=== PATIENT | female | born 1945 | race Caucasian/White ===

== ENCOUNTER 2018-11-16 17:57 | Inpatient (IN) ==
--- NOTE | 2018-11-16 18:51 | XRay Report ---
XR chest 1V portable CLINICAL HISTORY: Chest Pain dyspnea COMPARISON STUDY: No previous studies for comparison. FINDINGS: The bones soft tissues and hemidiaphragms are normal. The cardiomediastinal silhouette is n ormal. The lungs are clear. The pulmonary vasculature is normal. IMPRESSION: Negative chest. The above report was generated using voice recognition software. It may contain grammatical, syntax or spelling errors. Electronically signed by: Azam Serra M.D. 11/16/2018 6:50 PM
[2018-11-16 18:54] LABS: Basophils # (auto) 0.04 K/uL (0-0.2); Basophils % (auto) 0.7 %; Eosinophils # (auto) 0.05 K/uL (0-0.5); Eosinophils % (auto) 0.8 %; Hematocrit (blood only) 34.5 % (37-47); Hemoglobin 11.5 g/dL (12.0-16.0); Lymphocytes # (auto) 1.29 K/uL (1.2-3.4); Lymphocytes % (auto) 21.2 %; Mean Corpuscular Hgb Conc 33.3 g/dL (32-36); Mean Corpuscular Volume 95.3 fL (80-100); Mean Platelet Volume 10.1 fL (7.4-10.4); Monocytes # (auto) 0.47 K/uL (0.11-0.59); Monocytes % (auto) 7.7 %; Neutrophils # (auto) 4.24 K/uL (1.4-6.5); Neutrophils % (auto) 69.6 %; Platelet Count 196 K/uL (130-400); RDW Standard Deviation 45.2 fL (36.4-46.3); Red Blood Count 3.62 M/uL (4.2-5.4); White Blood Count 6.09 K/uL (4.8-10.8)
[2018-11-16 19:01] LABS: Albumin Level 3.4 gm/dl (3.4-5.0); BUN Creatinine Ratio 25.7 (10-20); Calcium 8.3 mg/dl (8.5-10.1); Creatinine Clr Calc Pharmacy 95.1 ml/min; Est GFR (African American) 109.4; Est GFR (Non-African American) 94.4; Magnesium 1.9 mg/dl (1.8-2.4); Potassium 3.5 mmol/L (3.5-5.1)
[2018-11-16 19:08] LABS: Bilirubin,Total 0.2 mg/dl (0.2-1); Globulin 3.3 gm/dl (2.5-4.0); Total Protein 6.7 gm/dl (6.4-8.2); Troponin I 0.137 ng/ml (0-0.045)
[2018-11-16] MEDS ORDERED: HEPARIN SOD 5,000 UNIT/0.5 ML VIAL ONE (19:30)
[2018-11-16] MEDS ORDERED: HEPARIN 25000 UNIT/500 ML D5W IV ONE (19:31)
[2018-11-16] MEDS ORDERED: HEPARIN IV BOLUS 5,000 UNITS in SYRINGE 0 ML IV ONE (19:45)
[2018-11-16] MEDS ORDERED: ASPIRIN CHEW 324 MG PO STA (19:58)
[2018-11-16 20:03] LABS: Prothrombin Time 10.3 Seconds (9.0-12.0)
[2018-11-16] MEDS ORDERED: ASPIRIN CHEW 324 MG ONE (20:17)
[2018-11-16] MEDS: Heparin Adult STANDARD Wt-Based Dextrose 5% 25,000 units/500 mL IV SCH ×2 (20:45→21:37)
[2018-11-16] MEDS ORDERED: ONDANSETRON INJ 2 MG/ML 2 ML VIAL IV PRN (20:50)
[2018-11-16] MEDS ORDERED: NITROGLYCERIN SL 0.4 MG/TAB TAB SL PRN (20:50)
[2018-11-16] MEDS ORDERED: ACETAMINOPHEN 325 MG TAB PO PRN (20:50)
[2018-11-16] MEDS: SODIUM CHLORIDE 0.9% 1000ML 1,000 ML IV SCH (21:35)
[2018-11-16] MEDS: NITROGLYCERIN 2% OINTMENT 30GM TUBE EXT SCH (21:36)
--- NOTE | 2018-11-16 22:56 | History and Physical Report ---
DATE OF ADMISSION: 11/16/2018 CHIEF COMPLAINT: Chest pain. HISTORY OF PRESENT ILLNESS: This is a 72-year-old female with past medical history significant for prediabetes, not on any medications, presents with chest pain. The patient noticed chest pain last after heavy work, mid level of the chest, radiating to the back of the neck, pressure like feeling, at that time she also felt like short of breath and some difficulty swallowing and with rest the pain subsided in about 20 minutes and also yesterday when she went for dancing with her , after some time, she felt has some mild chest discomfort but not as bad as the first episode, but it did not happen when she had brisk walk other day. She went to family doctor today, since there had some abnormal EKG changes was planned for stress test tomorrow, but was advised to go to the ER if the chest pain recurs. Then again, she noticed some chest discomfort today in the afternoon and it was not as bad as before but it prompted her to come to the ER. Currently, resting comfortable and hemodynamically stable. Denies any shortness of breath. Currently, no nausea, no vomiting, no sweating, no dizziness, no headache, no blurred vision, no earache, no runny nose, no sore throat, no difficulty swallowing. No cough, no fever, no chills. Sleeping okay. Appetite is not that great since last few months. She says she has had a lot of stress since last few months and her appetite is down. Sleep is okay. Denies abdominal pain. Normal bowel and bladder movements. No burning micturition, no hematuria, no melena or hematochezia. No swelling in the legs. No rash, no easy bruising or easy bleeding. ALLERGIES: CODEINE AND PENCILLIN ,MERCURY. PAST MEDICAL HISTORY: As mentioned above. PAST SURGICAL HISTORY: Breast biopsy; colonoscopy; conization of cervix; appendectomy; removal of neck wrinkles; removal of skin wrinkles of cheek and chin wrinkles; blepharoplasty, lower eyelid; lipectomy of the head and neck. MEDICATIONS: The patient is on ibuprofen as needed. FAMILY HISTORY: Significant for mother had cancer. Maternal grandmother has diabetes, hypertension, breast cancer. SOCIAL HISTORY: , lives with . No smoking, alcohol socially. No drug use. REVIEW OF SYMPTOMS: As per HPI. Rest of review of systems negative. PHYSICAL EXAMINATION: GENERAL: The patient is of moderate built, not in acute distress. VITAL SIGNS: Temperature 36.7, pulse 64, respiratory rate 18, blood pressure 118/67, oxygen 97% room air. HEENT: No pallor, no icterus. Pupils equal, round and reactive to light. NECK: No JVD, no neck masses, no carotid bruit. CARDIOVASCULAR: S1, S2 heard, regular rate and rhythm, no murmur, no gallop. RESPIRATORY SYSTEM: Normal AP diameter. No accessory muscle use. No wheezing, no crackles. ABDOMEN: Soft, bowel sounds present. Nontender. No distention. CENTRAL NERVOUS SYSTEM: Cranial nerves II-XII are grossly intact. Nonfocal. EXTREMITIES: No edema, no erythema. LABS: WBC 6, hemoglobin 11.5, hematocrit 34.5, platelets 196. Sodium 137, potassium 3.5, chloride 103, bicarbonate 30, BUN 14, creatinine 0.5, serum glucose 98, calcium 8.3, magnesium 1.9, total bilirubin 0.2, AST 26, ALT 41, alkaline phosphatase 91. Troponin I 0.13. Lipase 178. Chest x-ray, negative chest. EKG shows sinus rhythm at the rate of 68, T-wave inversions in lateral leads. ASSESSMENT AND PLAN: This is a 72-year-old female who presents with chest pain and abnormal EKG had some elevated troponin. 1. Non-ST elevated myocardial infarction. Chest pain with exertion. EKG changes with T-wave inversions of lateral leads and mild elevation of troponin 0.137. We will start her on IV heparin. We will place her on nitro paste, aspirin. Follow serial cardiac enzymes, echocardiogram. Monitor in tele floor. Consult cardiology for possible cardiac catheterization. We will also follow the lipid profile. 2. Prediabetes. Follow hemoglobin A1c levels. Currently n.p.o. 3. Deep venous thrombosis prophylaxis, IV heparin. DISPOSITION: Close monitoring in tele floor. Level I full code. MTDD
--- NOTE | 2018-11-16 23:09 | Emergency Department Note ---
Entered by Tevin Castaneda acting as a scribe for Jourdan Caraballo MD History of Present Illness General Chief complaint: Chest Pain Stated complaint: CHEST PAIN Time Seen by Provider: 11/16/18 17:58 Source: patient History of Present Illness Onset (ago): minute(s) (prior to arrival) Location: chest Pain Consistency: + now resolved Quality: + other (tightness) Relieved By: + other ("waiting") Exacerbated By: not by other (exertion) Associated symptoms: no loss of appetite and no nausea/vomiting Treatments prior to arrival: aspirin The patient is a 72 year old white female who presents to the Emergency Room with complaints of currently resolved chest tightness occurring prior to arrival. She states that she first developed pain in her right shoulder that radiated to her neck and chest. She notes some difficulty swallowing at that time but no shortness of breath. She states that her pain was not worsened with exertion, and it seemed to improve with waiting. The patient reports that she has an outpatient stress test scheduled tomorrow, and she was told by her PCP to come to the ER if she had any chest pain. She notes that she currently has no active chest pain. The patient also reports an episode of chest pressure/tigh tness, shortness of breath, weakness, and dizziness five days ago after unloading a cart that was improved with rest. The patient denies nausea, vomiting, changes in bowel movements or urination, loss of appetite, or use of blood thinners. She also denies a history of smoking, heart/lung problems, s urgeries, or family history of MO or stroke prior to age 65. She notes that she occasionally drinks alcohol. She states that she was given aspirin prior to arrival. Home Medications Home Medications Medication Instructions Recorded Confirmed Type cyanocobalamin (vitamin B-12) 1 ml PO DAILY 11/16/18 11/16/18 History [Vitamin B-12] ibuprofen 600 mg PO DIRECTED PRN 11/16/18 11/16/18 History Allergies Allergy/AdvReac Type Severity Reaction Status Date / Time codeine Allergy Unknown Rash Verified 11/16/18 20:20 mercury (elemental) Allergy Unknown Itchiness/R Verified 11/16/18 20:20 sofy Penicillins Allergy Unknown Rash Verified 11/16/18 20:20 Past Med/Surg History Medical History Anxiety Social History Preferred Language: [place] Communication Ability: Effective Clinical Nursing Coordinator Required: No Beliefs That Will Affect Care: None Current Living Situation: Spouse Other Information That Helps Us Care for You: No Feels Safe at Home: Yes Safety Concerns: Feels Safe At This Time Smoking Status: Never smoker Hx Alcohol Use: Yes Hx Substance Use: No Review of Systems See HPI for pertinent positives & negatives. and A total of 10 systems reviewed and were otherwise negative Physical Exam Vital Signs Vital Signs - 24 hr 11/16/18 18:09 11/16/18 18:31 11/16/18 19:01 Temperature 36.7 C Temperature Source Oral Sepsis Recent Fever Within 48 Hours No Sepsis Action Taken by Nursing No Action Required Pulse Rate 66 67 64 Pulse Rate [Apical] Pulse Rate from SpO2 Sensor 67 62 Respiratory Rate 14 20 18 Respiratory Effort / Characteristics Non-Labored Spontaneous Respiratory Depth Normal Respiratory Pattern Regular Blood Pressure 155/80 H 135/88 118/67 Blood Pressure [Left Arm] Blood Pressure Mean 105 103 84 Blood Pressure Mean [Left Arm] Pulse Oximetry 100 100 97 Oxygen Delivery Method Room Air 11/16/18 20:52 11/16/18 21:57 11/16/18 22:23 Temperature 36.4 C L Temperature Source Oral Sepsis Recent Fever Within 48 Hours Sepsis Action Taken by Nursing Pulse Rate 83 64 Pulse Rate [Apical] 60 Pulse Rate from SpO2 Sensor Respiratory Rate 20 18 Respiratory Effort / Characteristics Non-Labored Respiratory Depth Normal Respiratory Pattern Regular Blood Pressure 131/88 Blood Pressure [Left Arm] 141/76 H Blood Pressure Mean Blood Pressure Mean [Left Arm] 97 Pulse Oximetry 97 98 Oxygen Delivery Method Room Air Room Air GENERAL: Well appearing, well nourished, NAD, non-toxic. EYE EXAM: Normal conjunctiva. PERRL, no anisocoria and EOM's grossly intact w/o pain. OROPHARYNX: No exudate, posterior pharynx is clear, no tonsillar/uvular deviation or swelling. NECK: Supple, no nuchal rigidity, no adenopathy, non-tender. No signs of meningismus. LUNGS: Clear to auscultation bilaterally. Normal chest wall mechanics. HEART: NSR, no MRG. ABDOMEN: Abdomen soft, non-tender, normo-active bowel sounds, no masses, no rebound or guarding. BACK: No CVA TTP. SKIN: No rashes and no bruising. UPPER EXTREMITIES: Upper extremities are grossly normal. LOWER EXTREMITIES: No pitting edema. No calf pain. Negative Baltazar's b/l. NEURO EXAM: Cranial nerves II-XII grossly intact, normal speech, 5/5 strength in b/l upper and lower extremities, moves all 4 extremities without issue on command. Course 1807: Past medical records reviewed. The patient was evaluated in room C6, and a complete history and physical examination were performed. 1915: I consulted Dr. Skip Swain Hospitalist. The patient will be reevaluated for hospitalization. 1923: I updated the patient on results. She reports that she still does not have active chest pain. Consultations Consultation #1: I consulted Dr. Skip Swain Hospitalist. The patient will be reevaluated for hospitalization. Time: 19:16 Administered Medications Heparin Sodium/Dextrose (Heparin Sodium/Dextrose) 25,000 units in 500 mls @ 23 mls/hr IV .[id number] [facility]; Protocol Stop: 12/16/18 20:59 Last Admin: 11/16/18 21:37 Dose: Not Given Documented by: [id number] Sodium Chloride (Nss 1000ml) 1,000 mls @ 75 mls/hr IV .[id number] [facility] Stop: 12/16/18 20:49 Last Admin: 11/16/18 21:35 Dose: 75 mls/hr Documented by: [id number] Nitroglycerin (Nitro-Bid 2%) 0.5 inch EXT Q6H [facility] Stop: 12/16/18 20:59 Last Admin: 11/16/18 21:36 Dose: 0.5 inch Documented by: [id number] Discontinued Medications Aspirin (Aspirin) Confirm Administered Dose 324 mg .ROUTE .STK-MED ONE Stop: 11/16/18 20:18 Last Admin: 11/16/18 20:30 Dose: 324 mg Documented by: [id number] Heparin Sodium (Porcine) (Heparin Sodium (Porcine)) Confirm Administered Dose 10,000 units .ROUTE .STK-MED ONE Stop: 11/16/18 19:31 Last Admin: 11/16/18 19:48 Dose: 5,000 units Documented by: [id number] Cosigned by: [id number] Heparin Sodium/Dextrose () 1 ea IV NOW STA; Protocol Stop: 11/16/18 19:18 Last Admin: 11/16/18 19:49 Dose: Not Given Documented by: [id number] Heparin Sodium/Dextrose (Heparin Sodium/Dextrose) Confirm Administered Dose 25,000 units IV .STK-MED ONE Stop: 11/16/18 19:32 Last Admin: 11/16/18 19:49 Dose: 25,000 units Documented by: [id number] Cosigned by: [id number] Medical Decision Making Medical Records Attestation: I reviewed the patient's medical records. Home Medications Current Medication List: was personally reviewed by wy Laboratory Data Attestation: I reviewed the patient's lab results. Result diagrams: 11/16/18 18:25 11/16/18 18:25 Lab Results 11/16/18 11/16/18 11/16/18 Range/Units 18:25 18:25 18:25 WBC 6.09 (4.8-10.8) K/uL RBC 3.62 L (4.2-5.4) M/uL Hgb 11.5 L (12.0-16.0) g/dL Hct 34.5 L (37-47) % MCV 95.3 (80-100) fL MCH 31.8 (25-34) pg MCHC 33.3 (32-36) g/dL RDW Std Deviation 45.2 (36.4-46.3) fL RDW Coeff of Mj 13.0 (11.5-14.5) % Plt Count 196 (130-400) K/uL MPV 10.1 (7.4-10.4) fL Immature Gran % (Auto) 0.0 % Neut % (Auto) 69.6 % Lymph % (Auto) 21.2 % [place] % (Auto) 7.7 % Eos % (Auto) 0.8 % Baso % (Auto) 0.7 % Immature Gran # (Auto) 0.00 (0.00-0.02) K/uL Neut # (Auto) 4.24 (1.4-6.5) K/uL Lymph # (Auto) 1.29 (1.2-3.4) K/uL [place] # (Auto) 0.47 (0.11-0.59) K/uL Eos # (Auto) 0.05 (0-0.5) K/uL Baso # (Auto) 0.04 (0-0.2) K/uL PT 10.3 (9.0-12.0) Seconds INR 1.0 (0.9-1.1) Sodium 137 (136-145) mmol/L Potassium 3.5 (3.5-5.1) mmol/L Chloride 103 (98-107) mmol/L Carbon Dioxide 30 (21-32) mmol/L Anion Gap 4.0 (3-11) BUN 14 (7-18) mg/dl Creatinine 0.55 L (0.6-1.2) mg/dl Est Cr Clr Drug Dosing 95.1 ml/min Est GFR ( Amer) 109.4 Est GFR (Non-Af Amer) 94.4 BUN/Creatinine Ratio 25.7 H (10-20) Glucose 98 (70-99) mg/dl Calcium 8.3 L (8.5-10.1) mg/dl Magnesium 1.9 (1.8-2.4) mg/dl Total Bilirubin 0.2 (0.2-1) mg/dl AST 26 (15-37) U/L ALT 41 (12-78) U/L Alkaline Phosphatase 91 (45-117) U/L Troponin I 0.137 H* (0-0.045) ng/ml Total Protein 6.7 (6.4-8.2) gm/dl Albumin 3.4 (3.4-5.0) gm/dl Globulin 3.3 (2.5-4.0) gm/dl Albumin/Globulin Ratio 1.0 (0.9-2) Lipase 178 (73-393) U/L Imaging Data Radiologist's Impression: Radiology results as stated below per my review and the radiologist's interpretation: XR chest 1V portable CLINICAL HISTORY: Chest Pain dyspnea COMPARISON STUDY: No previous studies for comparison. FINDINGS: The bones soft tissues and hemidiaphragms are normal. The cardiome diastinal silhouette is normal. The lungs are clear. The pulmonary vasculature is normal. IMPRESSION: Negative chest. The above report was generated using voice recognition software. It may contain grammatical, syntax or spelling errors. Electronically signed by: Azam Serra M.D. 11/16/2018 6:50 PM ECG Data Attestation: I personally reviewed and interpreted this ECG as follows: Indication: chest pain Rate (beats per minute): 68 Rhythm: sinus rhythm Findings: + other (short NV; normal QRS duration; normal axis) and + T-wave inversion (lateral and high lateral) Comparison ECG Date: from (December 2013) Change: the following changes noted (changes are new) Blood Pressure Blood Pressure Findings: Normal blood pressure Blood Pressure Disposition: did not require urgent referral MDM Narrative Prior records/ancillary studies reviewed. Triage nursing notes reviewed. The patient is a 72 year old white female who presents to the Emergency Room with complaints of currently resolved chest tightness occurring prior to arri alex. Differential diagnosis: Etiologies such as cardiac ischemia, aortic dissection, pulmonary embolism, pneumonia, pneumothorax, musculoskeletal, infections, pericarditis, myocarditis, esophageal rupture, gastrointestinal, as well as others were entertained. Patient was seen and evaluated the bedside. The patient did give a description of the vague right-sided chest pain. Patient does not describe it is exertional with no diaphoresis nausea or vomiting. Patient denies any prior history of hypertension or diabetes. Patient denies any early family history of stroke or MO in parents or siblings under the age of 65. Patient is a non-smoker. No prior history of DVT or PE. Patient does not complain of any shortness of breath. The patient does relate to a chest pain episode last that sounded more exertional in nature. The patient did have an EKG completed during an outpatient visit which showed T wave inversions in the patient is pending a stress test tomorrow. Patient's troponin is somewhat elevated. The patient already did receive a full dose aspirin in route. Given that the patient does not have a STEMI and no active chest pain I do not believe she requires a cardiac catheterization at this time. I did discuss with the patient that if she has any recurrence of chest pain she is let us know and that may change her disposition. Patient did not have any further chest pain while in the emergency department. Heparin drip was initiated. I did speak the on-call hospitalist who agreed to further evaluate treat the patient. Patient was admitted to the medicine service. Impression & Plan Non-ST elevation MO (NSTEMI) Critical Care Time I have personally spent 40 minutes of critical care time in the direct management of this patient. This includes bedside care, interpretation of diagnostic studies, and testing, discussion with consultants, patient, and family members, and other required patient management activities. This 40 minutes is in excess of all separately billable procedures. Critical Care Time: Yes Total Critical Care Time: 40 Discharge Plan Visit Data *Final* Discharge Date/Time: 11/16/18 20:52 Chief Complaint: Chest Pain Stated Complaint: CHEST PAIN ED Provider: Jourdan Caraballo Discharge Problem: Non-ST elevation MO (NSTEMI) Patient Disposition: Admitted As Inpatient Discharge Instructions Interventions: ED Discharge Assessment Last Done: 11/16/18 20:52 The scribe's documentation has been prepared under my direction and personally reviewed by me in its entirety. I confirm that the note above accurately reflects all work, treatment, procedures, and medical decision making performed by me.
[2018-11-17 02:42] LABS: Partial Thromboplastin Ratio 3.2
[2018-11-17 02:44] LABS: Partial Thromboplastin Time 86.7 Seconds (21.0-31.0)
[2018-11-17] MEDS: NITROGLYCERIN 2% OINTMENT 30GM TUBE EXT SCH ×3 (02:53→14:45)
[2018-11-17 05:52] LABS: Basophils # (auto) 0.04 K/uL (0-0.2); Basophils % (auto) 0.9 %; Eosinophils # (auto) 0.11 K/uL (0-0.5); Eosinophils % (auto) 2.6 %; Hematocrit (blood only) 33.9 % (37-47); Hemoglobin 11.2 g/dL (12.0-16.0); Lymphocytes # (auto) 1.31 K/uL (1.2-3.4); Mean Corpuscular Volume 94.2 fL (80-100); Mean Platelet Volume 10.2 fL (7.4-10.4); Monocytes # (auto) 0.31 K/uL (0.11-0.59); Monocytes % (auto) 7.3 %; Neutrophils # (auto) 2.45 K/uL (1.4-6.5); Neutrophils % (auto) 58.2 %; Platelet Count 170 K/uL (130-400); RDW Standard Deviation 45.2 fL (36.4-46.3); White Blood Count 4.22 K/uL (4.8-10.8)
[2018-11-17 06:21] LABS: BUN Creatinine Ratio 21.3 (10-20); Calcium 8.1 mg/dl (8.5-10.1); Creatinine Clr Calc Pharmacy 91.4 ml/min; Est GFR (Non-African American) 94.9; Magnesium 2.1 mg/dl (1.8-2.4)
[2018-11-17 06:26] LABS: Chol HDL Ratio 2; Cholesterol 148 mg/dl (0-200); HDL Cholesterol 78 mg/dl; LDL Cholesterol Calculated 62 mg/dl; Triglycerides 40 mg/dl (0-150); VLDL Cholesterol 8 mg/dl
[2018-11-17 06:35] LABS: Troponin I 0.123 ng/ml (0-0.045)
[2018-11-17 06:45] LABS: Estimated Average Glucose 120 mg/dl; Hemoglobin A1C 5.8 % (4.5-5.6)
[2018-11-17] MEDS ORDERED: ASPIRIN 81 MG CHEW PO STA (08:59)
[2018-11-17] MEDS ORDERED: ASPIRIN 81 MG ECTAB PO SCH (09:00)
[2018-11-17] MEDS ORDERED: ATORVASTATIN 40 MG TAB PO SCH (09:00)
--- NOTE | 2018-11-17 09:17 | Cardiology Consultation ---
Date of Consultation November 17, 2018 Assessment & Plan (1) Non-ST elevation [place] (NSTEMI): The patient presents with progressive waxing and waning exertional chest tightness and shortness of breath of a week's duration that is consistent with angina. Her EKG is abnormal with lateral T wave inversions, and troponin is abnormal with mild elevation of 0.137 on presentation, 0.135, and 0.123 ng/ml with most recent measurement having been performed this morning at 5:30 AM. At present, she is comfortable and hemodynamically stable and receiving in fraction heparin infusion. Echocardiogram is abnormal with a moderate sized wall motion abnormality encompassing the inferior, posterior, and apical ricks with preserved LVEF. Recommend proceeding with definitive coronary angiography. Risks were discussed the patient she is agreeable. She received 324 mg of aspirin last evening, and 81 mg of aspirin so far today. I have ordered a one-time dose of 243 mg of chewable aspirin now prior to cardiac catheterization. We will continue her normal saline at 75 mL an hour which had been started on admission as well as unfractionated heparin on-call to the cardiac catheterization lab. Although the patient's cholesterol is low with a total cholesterol of 148, LDL cholesterol 62, and afebrile HDL cholesterol 70 mg/dL, given her event, recommend statin therapy for the purpose of plaque stabilization and therefore atorvastatin 40 mg daily will be administered. Patient is n.p.o. for the procedure. Further recommendations will be forthcoming when she is assessed by Dr. Bonilla for planned cardiac catheterization. History of Present Illness Attending Physician: Rob Doherty MD History of Present Illness Natalie Benjamin is a 72-year-old female seen in cardiology consultation per the request of Dr. Valdivia for cardiac management of non-ST segment elevation myocardial infarction. The patient's primary care provider is Dr. Manisha Perez at [facility]. The patient describes herself as being healthy. She exercises routinely and takes no chronic medications. Her recent symptoms date back to about a week ago when last , 11/11/18 she had been loading items into her car from a fashion show and experienced symptoms of shortness of breath, tightness in her left breast, pressure sensation in her chest, shoulders, and neck. She rested in her car and things felt better. That evening, she felt mild recurrence of similar symptoms while climbing stairs, but once again this improved with rest. 2 days later on Thursday night she went dancing and had recurrence of shortness of breath and chest pressure. Her symptoms once again improved but did wax and wane to a mild degree in the interim. She had a routine scheduled visit with her primary care provider yesterday. After discussion of the symptoms, an EKG was performed which was abnormal. Additional cardiac testing was recommended with stress test, and the patient was counseled that if she should have recurrent symptoms she should seek emergency treatment. Shortly after her appointment yesterday however she had recurrence of the chest discomfort, prompting her to present to the emergency department by ambulance at approximately 6 PM last evening. At present, the patient is comfortable. She is receiving unfractionated heparin infusion. And she has no anginal symptoms. Telemetry reveals stable sinus rhythm. Family History: Mother at age 47 due to with the patient describes as a "rare cancer of the hip and lungs Father at age 90 after complications from a fall The patient has siblings with no heart disease Social History: She is a non-smoker. She produces women's clothing. She is and lives with her and 18-year-old adopted son Allergies Allergy/AdvReac Type Severity Reaction Status Date / Time codeine Allergy Unknown Rash Verified 11/16/18 20:20 mercury (elemental) Allergy Unknown Itchiness/R Verified 11/16/18 20:20 sofy Penicillins Allergy Unknown Rash Verified 11/16/18 20:20 Home Medications Home Medications Medication Instructions Recorded Confirmed Type cyanocobalamin (vitamin B-12) 1 ml PO DAILY 11/16/18 11/16/18 History [Vitamin B-12] ibuprofen 600 mg PO DIRECTED PRN 11/16/18 11/16/18 History Patient History Medical History Anxiety Social History Preferred Language: Kyrgyz Communication Ability: Effective Head Athletic Trainer/Strength Coach Required: No Beliefs That Will Affect Care: None Current Living Situation: Spouse Other Information That Helps Us Care for You: No Feels Safe at Home: Yes Safety Concerns: Feels Safe At This Time Smoking Status: Never smoker Hx Alcohol Use: Yes Hx Substance Use: No Review of Systems 10 point review of systems was reviewed and is negative with the exception of that above. The patient does note recent travel. [place] 08, and flew back on October 19. She notes no leg pain. Physical Exam Vital Signs (Past 24 Hours): Last Vital Signs Temp 36.9 C 11/17/18 08:20 Pulse 58 L 11/17/18 08:20 Resp 16 11/17/18 08:20 BP 105/53 L 11/17/18 08:20 Pulse Ox 95 11/17/18 08:20 Constitutional: WD/WN, vitals as above Neck: trachea midline, no thyromegaly Respiratory: normal respiratory effort, lungs clear to auscultation Cardiovascular: RRR, no murmur, no edema Vessels: no JVD Extremities: no edema Gastrointestinal (Abdomen): normal bowel sounds, soft, nontender, no hepatosplenomegaly Skin: no rashes, warm and dry Neurologic: moves all extremities and awake; no focal motor deficits Results & Data Laboratory Results Cardiac Enzymes 11/16/18 11/16/18 11/17/18 Range/Units 18:25 23:07 05:30 AST 26 (15-37) U/L Troponin I 0.137 H* 0.135 H* 0.123 H* (0-0.045) ng/ml Coagulation 11/16/18 11/17/18 Range/Units 18:25 02:01 PT 10.3 (9.0-12.0) Seconds APTT 86.7 H* (21.0-31.0) Seconds Lipids 11/17/18 Range/Units 05:30 Triglycerides 40 (0-150) mg/dl Cholesterol 148 (0-200) mg/dl HDL Cholesterol 78 mg/dl Cholesterol/HDL Ratio 2 CBC 11/16/18 11/17/18 Range/Units 18:25 05:30 WBC 6.09 4.22 L (4.8-10.8) K/uL RBC 3.62 L 3.60 L (4.2-5.4) M/uL Hgb 11.5 L 11.2 L (12.0-16.0) g/dL Hct 34.5 L 33.9 L (37-47) % Plt Count 196 170 (130-400) K/uL Neut # (Auto) 4.24 2.45 (1.4-6.5) K/uL Lymph # (Auto) 1.29 1.31 (1.2-3.4) K/uL Peach # (Auto) 0.47 0.31 (0.11-0.59) K/uL Eos # (Auto) 0.05 0.11 (0-0.5) K/uL Baso # (Auto) 0.04 0.04 (0-0.2) K/uL Comprehensive Metabolic Panel 11/16/18 11/17/18 Range/Units 18:25 05:30 Sodium 137 140 (136-145) mmol/L Potassium 3.5 4.0 (3.5-5.1) mmol/L Chloride 103 107 (98-107) mmol/L Carbon Dioxide 30 29 (21-32) mmol/L BUN 14 11 (7-18) mg/dl Creatinine 0.55 L 0.54 L (0.6-1.2) mg/dl Glucose 98 96 (70-99) mg/dl Calcium 8.3 L 8.1 L (8.5-10.1) mg/dl AST 26 (15-37) U/L ALT 41 (12-78) U/L Alkaline Phosphatase 91 (45-117) U/L Total Protein 6.7 (6.4-8.2) gm/dl Albumin 3.4 (3.4-5.0) gm/dl Intake and Output 11/16/18 11/17/18 11/17/18 22:59 06:59 14:59 Intake Total 138.000 / 138.000 80.333 / 80.333 Balance 138.000 / 138.000 80.333 / 80.333 Intake: IV 138.000 / 138.000 80.333 / 80.333 HEPARIN SODIUM/DEXTROSE 25,000 138.000 / 138.000 80.333 / 80.333 units In 500 ml @ 1,000 UNITS/ HR 20 mls/hr IV .Q24H [facility] Rx#: [id number] Other: Other Intake Source NPO # Unmeasured Voids 1 1 Weight 60.8 kg 60.6 kg Diagnostic Findings EKG performed last evening on arrival to the emergency room 11/16/18 1804 and reviewed independently revealed sinus rhythm at 60 bpm, age-indeterminate septal infarction pattern noted in lead V2, T wave inversions in the lateral precordial leads consistent with ischemia. Repeat EKG this morning 11/17/18 at 20 6 AM revealed sinus bradycardia at 52 bpm, ongoing lateral T wave abnormality consistent with ischemia. The previously noted septal infarction pattern is resolved with improved R wave noted in lead V2 peer Echocardiogram performed this morning 11/17/18 reviewed independently by the undersigned: There is a moderate-sized inferior, posterior, and apical wall motion abnor mality with hypokinesis of the segments, normal LVEF in the range of 55-60%. There is a small loculated anterior pericardial effusion without tamponade. No significant valvular abnormalities were noted. Medications Administered Current Inpatient Medications Acetaminophen (Tylenol) 650 mg PO Q4H PRN PRN Reason: Pain or Fever Stop: 12/16/18 20:49 Aspirin (Ecotrin Ectab) 81 mg PO QAM TITI Stop: 12/17/18 08:59 Atorvastatin Calcium (Lipitor) 40 mg PO QAM [facility] Stop: 12/17/18 08:59 Heparin Sodium/Dextrose (Heparin Sodium/Dextrose) 25,000 units in 500 mls @ 20 mls/hr IV .Q24H TITI; Protocol Stop: 12/16/18 20:59 Last Titration: 11/17/18 07:16 Dose: 1,000 units/hr, 20 mls/hr Documented by: Sodium Chloride (Nss 1000ml) 1,000 mls @ 75 mls/hr IV .[id number] TITI Stop: 12/16/18 20:49 Last Admin: 11/16/18 21:35 Dose: 75 mls/hr Documented by: Nitroglycerin (Nitro-Bid 2%) 0.5 inch EXT Q6H TITI Stop: 12/16/18 20:59 Last Admin: 11/17/18 02:53 Dose: Not Given Documented by: Nitroglycerin (Nitrostat) 0.4 mg SL UD PRN PRN Reason: Chest Pain Stop: 12/16/18 20:49 Ondansetron HCl (Zofran) 4 mg IV Q6H PRN PRN Reason: Nausea Stop: 12/16/18 20:49
[2018-11-17 09:52] LABS: Partial Thromboplastin Time 55.3 Seconds (21.0-31.0)
[2018-11-17] MEDS: SODIUM CHLORIDE 0.9% 1000ML 1,000 ML IV SCH (10:21)
[2018-11-17] MEDS ORDERED: NiCARDipine HCL INJ 2.5 MG/ML 10 ML AMP ONE (14:03)
[2018-11-17] MEDS ORDERED: HEPARIN (PORCINE) 1000 UNIT/ML 10 ML (CATH LAB USE ONLY) ONE (14:03)
[2018-11-17] MEDS ORDERED: fentaNYL citrate 100 MCG/2 ML VIAL ONE (14:03)
[2018-11-17] MEDS ORDERED: MIDAZOLAM HCL 1 MG/ML 2ML VIAL ONE (14:03)
[2018-11-17] MEDS ORDERED: NITROGLYCERIN/D5W 100MCG/ML 20ML SYR ONE (14:35)
--- NOTE | 2018-11-17 14:51 | Cardiac Catheterization ---
Date of Service November 17, 2018 Cardiac Cath Report Cardiac Cath Report Procedure: 1. Left heart catheterization 2. Coronary angiography 3. Left ventriculography History: This is a 72-year-old female with minimal risk factors for coronary artery disease who presented with activity related chest pain and had elevated cardiac markers. Procedure summary: After informed consent the patient was taken to the cardiac catheterization lab where she was prepped and draped in the usual manner for right transradial approach. Preformed 5 Bahamian diagnostic catheters were utilized for the coronary angiograms. A 5 Bahamian pigtail catheter was utilized for the left ventriculogram and left ventricular pressures. Following the procedure the patient was returned to the holding area the Real Estate Lawyer in stable condition. ACC data: AUC score 9 Start time 2:23 PM End time 2:38 PM Opening aortic pressure 90/57 Left ventricular pressure 94/15 Closing aortic pressure 98/49 Sedation 1 mg intravenous Versed IV fluids 42 cc normal saline Contrast 81 cc Optiray Fluoroscopy time 3.5 minutes Radiation 610 mGy DAP 3835 cGy Coronary angiography: Selective injections of the left coronary artery revealed the left main trunk to be widely patent. The left circumflex system consists of multiple marginal branches that supply the lateral myocardium. Left circumflex artery is smooth in appearance widely patent and within normal limits. The LAD wraps around the apex of the heart. The LAD gives off a large ramus branch. The LAD system is smooth in appearance widely patent and within normal limits. Selective injections of the right coronary artery revealed to be dominant. The right coronary artery is smooth appearance widely patent and within normal limits. Left ventriculogram: The left ventricle is of normal size with normal systolic function. The estimated left ventricular ejection fraction is 60%. Aortic root and ascending aorta have normal morphology. The mitral valve is competent. Summary: Normal coronary arteries and normal LV function. Recommendations: Follow-up with primary care after discharge.
--- NOTE | 2018-11-17 15:04 | Hospitalist Progress Note ---
Date of Service November 17, 2018 Assessment & Plan (1) Non-ST elevation [place] (NSTEMI): Patient is a 72 yr female who presents with chest pain and found to have abnormal EKG, elevated troponin. Possible NSTEMI: Mild troponin elevation EKG shows:Lateral T wave Inversion CXR: Unremarkable ECHO: Moderate sized apical, inferior and posterior wall motion abnormality with hypokinesis of the segments. EF:55-60%, Small loculated aneterior pericardial effusion Started on Aspirin, statin, heparin ggt S/P Cardiac Cath:Normal coronary arteries and normal LV function. Appreciate Cardiology help H/O Prediabetes: Hb A1C:5.8 monitor BGs DVT Px: on IV heparin. Code Status Full code Disposition: Expect to discharge home when stable Subjective Patient is seen and examined at bedside Denies chest pain, SOB, dizziness, nausea this morning On Heparin ggt Planned for Cardiac Cath today Physical Exam Vital Signs (Past 24 Hours): Last Vital Signs Temp 36.9 C 11/17/18 11:03 Pulse 57 L 11/17/18 11:03 Resp 16 11/17/18 11:03 BP 95/56 L 11/17/18 11:03 Pulse Ox 96 11/17/18 11:03 Physical Exam: Physical Exam: Vitals signs as noted above General Appearance:Thin, no apparent distress Head: normocephalic, Atraumatic Eyes: normal inspection, EOMI Neck: supple, Trachea midline Respiratory/Chest: Normal breath sounds, CTA Cardiovascular: S1, S2, No murmur Abdomen/GI:Soft, Non tender, Bowel sounds present Extremities/Musculoskelatal:normal inspection, no edema Neurologic/Psych:AAOX3, grossly no focal neurological deficits Skin: normal color, warm Results & Data Laboratory Results Short CBC 11/16/18 11/17/18 Range/Units 18:25 05:30 WBC 6.09 4.22 L (4.8-10.8) K/uL Hgb 11.5 L 11.2 L (12.0-16.0) g/dL Hct 34.5 L 33.9 L (37-47) % Plt Count 196 170 (130-400) K/uL BMP 11/16/18 11/17/18 18:25 05:30 Sodium 137 140 Potassium 3.5 4.0 Chloride 103 107 Carbon Dioxide 30 29 BUN 14 11 Creatinine 0.55 L 0.54 L Glucose 98 96 Calcium 8.3 L 8.1 L Cardiac Enzymes 11/16/18 11/16/18 11/17/18 Range/Units 18:25 23:07 05:30 Troponin I 0.137 H* 0.135 H* 0.123 H* (0-0.045) ng/ml 11/17/18 Range/Units 11:57 Troponin I 0.092 H* (0-0.045) ng/ml Liver Function 11/16/18 Range/Units 18:25 Total Bilirubin 0.2 (0.2-1) mg/dl AST 26 (15-37) U/L ALT 41 (12-78) U/L Alkaline Phosphatase 91 (45-117) U/L Albumin 3.4 (3.4-5.0) gm/dl
[2018-11-17 15:26] VITALS: TEMP 97.9
[2018-11-17 17:36] VITALS: BP 100/53; PULSE 66; O2SAT 96
--- NOTE | 2018-11-17 18:31 | Discharge Summary ---
Date of Service November 17, 2018 Admission HPI Per Admitting Provider CHIEF COMPLAINT: Chest pain. HISTORY OF PRESENT ILLNESS: This is a 72-year-old female with past medical history significant for prediabetes, not on any medications, presents with chest pain. The patient noticed chest pain last after heavy work, mid level of the chest, radiating to the back of the neck, pressure like feeling, at that time she also felt like short of breath and some difficulty swallowing and with rest the pain subsided in about 20 minutes and also yesterday when she went for dancing with her , after some time, she felt has some mild chest discomfort but not as bad as the first episode, but it did not happen when she had brisk walk other day. She went to family doctor today, since there had some abnormal EKG changes was planned for stress test tomorrow, but was advised to go to the ER if the chest pain recurs. Then again, she noticed some chest discomfort today in the afternoon and it was not as bad as before but it prompted her to come to the ER. Currently, resting comfortable and hemodynamically stable. Denies any shortness of breath. Currently, no nausea, no vomiting, no sweating, no dizziness, no headache, no blurred vision, no earache, no runny nose, no sore throat, no difficulty swallowing. No cough, no fever, no chills. Sleeping okay. Appetite is not that great since last few months. She says she has had a lot of stress since last few months and her appetite is down. Sleep is okay. Denies abdominal pain. Normal bowel and bladder movements. No burning micturition, no hematuria, no melena or hematochezia. No swelling in the legs. No rash, no easy bruising or easy bleeding. Admission Exam Per Admitting Provider PHYSICAL EXAMINATION: GENERAL: The patient is of moderate built, not in acute distress. VITAL SIGNS: Temperature 36.7, pulse 64, respiratory rate 18, blood pressure 118/67, oxygen 97% room air. HEENT: No pallor, no icterus. Pupils equal, round and reactive to light. NECK: No JVD, no neck masses, no carotid bruit. CARDIOVASCULAR: S1, S2 heard, regular rate and rhythm, no murmur, no gallop. RESPIRATORY SYSTEM: Normal AP diameter. No accessory muscle use. No wheezing, no crackles. ABDOMEN: Soft, bowel sounds present. Nontender. No distention. CENTRAL NERVOUS SYSTEM: Cranial nerves II-XII are grossly intact. Nonfocal. EXTREMITIES: No edema, no erythema. Principal Diagnosis Discharge Information Discharge Diagnosis Chest Pain Discharge Goals Decrease discomfort,Improve function Discharge Activity Limitations Resume your previous activity Discharge Data Allergies Allergy/AdvReac Type Severity Reaction Status Date / Time codeine Allergy Unknown Rash Verified 11/16/18 20:20 mercury (elemental) Allergy Unknown Itchiness/R Verified 11/16/18 20:20 sofy Penicillins Allergy Unknown Rash Verified 11/16/18 20:20 Consultations 11/17/18 07:30 Consult Cardiology Routine 11/17/18 09:01 Consult Cardiac Catheterization Routine Procedures Performed Operation Date: 11/17/18 11:00 Actual Procedures p Cath, Left with Cors and Vent - Todd Bonilla DO s Cineradiography w/Routine Exam - Todd Bonilla DO CXR: Negative chest. Cardiac Cath: Summary: Normal coronary arteries and normal LV function. Recommendations: Follow-up with primary care after discharge. Ordered Studies 11/17/18 09:01 CL Cath Imgs for PACS use only Routine Hospital Course (1) Non-ST elevation [place] (NSTEMI): Patient is a 72 yr female who presents with chest pain and found to have abnormal EKG, elevated troponin. Possible NSTEMI: ACS ruled out Mild troponin elevation EKG shows:Lateral T wave Inversion CXR: Unremarkable ECHO: Moderate sized apical, inferior and posterior wall motion abnormality with hypokinesis of the segments. EF:55-60%, Small loculated aneterior pericardial effusion Started on Aspirin, statin, heparin ggt >>>DC on discharge S/P Cardiac Cath:Normal coronary arteries and normal LV function. Appreciate Cardiology help H/O Prediabetes: Hb A1C:5.8 monitor BGs DVT Px: on IV heparin. Code Status Full code Disposition: Expect to discharge home when stable Total Time Total Time Spent Total Time Spent (In Minutes): 37 minutes Total Time Includes: Examination of the Patient, Discharge Planning, Medication Reconciliation, Communication With Other Providers and Other Discharge Plan Discharge Items Patient Disposition: Home - Self-Care Reason For Visit: CHEST PAIN Discharge Diagnosis: Chest Pain Discharge Goals: Decrease discomfort and Improve function Activity: Resume your previous activity Exercise/Sports: Gradually increase as tolerated Non-emergency contact: Primary Care Provider Call non-emergency contact if: you have any medication questions, your symptoms worsen, your pain is not controlled, your pain is worsening, your pain is unusual for you, your pain is concerning for you, you have a fever, your wound has increased redness, your wound has increased drainage and your wound pain has increased Follow-up/Referrals: Manisha Perez MD [Primary Care Provider] - Diet: Heart Healthy Addtl Provider Instructions: Follow up with your PCP in 1 week as advised Seek immediate medical attention if your symptoms reoccur or worsen ACTIVITY RECOMMENDATIONS: Excess manipulation of the wrist should be avoided for the next 24-48 hours. * No lifting over 2 pounds (approximately a 1/2 gallon of milk) with the utilized arm for 24 hours. * No strenuous activity such as bowling or tennis for 3 days. * Keep the site of the procedure covered with a bandage for 24 hours. *You may shower the day after the procedure. Do not take a tub bath or submerge the puncture site in water for the next 3 days. *Do not operate any motorized equipment for 3 days. SPECIAL CARE INSTRUCTIONS: The site may be slightly bruised and sore following your procedure. Should any of the following occur, contact the Dr. who performed your procedure. 1. Redness/inflammation, swelling, chills, or fever, or colored drainage at procedure site within 3-7 days after your procedure. 2. Coldness, discoloration, ongoing numbness, severe pain, or swelling. Expect mild tingling of hand and tenderness at the puncture site for up to three days. If this persists beyond three days, or other symptoms develop, notify the Dr. who performed your procedure. BLEEDING: If the procedure site on your wrist begins to bleed, do not panic 1. Place 1 or 2 fingers firmly just slightly above the insertion site to stop the bleeding. You may be able to feel your pulse as you hold pressure. 2. Lift your finger after 5 minutes to see if the bleeding has stopped. 3. Once the bleeding has stopped, gently wipe the wrist area clean with a bandage. * If the bleeding from your wrist does not stop after 10 minutes, or if there is a large amount of bleeding or spurting, call 911 (do not drive yourself to the hospital). SKIN IRRITATION: * You may experience some redness and/or swelling in the area where radiation was administered. If any skin irritation occurs, please contact your family physician. FOLLOW UP VISIT: Keep any scheduled doctor appointments. Prescriptions: Continued ibuprofen 200 mg Tablet 600 mg PO DIRECTED PRN (Reason: Pain) RF: 0 Vitamin B-12 1,000 mcg/mL Drops 1 ml PO DAILY RF: 0 Stand-Alone Forms: Call Back Authorization, [facility]/Other Patient Handouts: Prediabetes, Diabetes Meal Planning Discharge Orders: Discharge Order (Routine); Ordered 11/17/18 Ordered By: Rob Doherty Admission Data Admit Date/Time: 11/16/18 19:57 Attending Provider: Rob Doherty Admit Provider: Luis Alberto Valdivia Primary Care Provider: Manisha Perez Other Providers: Lamberto Deal ; Kenton Guerrier ; Mu Link ; Cy Rosenthal ; Todd Bonilla ; Azam Minor ; Cheryl Zavala ; Loyda Huber Service: Telemetry Other Pending Studies at Discharge: No
== END 2018-11-17 19:01 | disposition home or self-care (01) | DRG 282 ==
LOC: ED 17:57 → 2E 19:57